=== PATIENT | male | born 1950 | race Caucasian/White ===

== ENCOUNTER 2017-07-05 05:20 | Emergency (ER) | payer MEDICARE ==
[2017-07-05] MEDS ORDERED: SODIUM CHLORIDE 0.9% 500 ML IV STA (05:50)
[2017-07-05 06:17] LABS: Basophils % (A) 1 %; CH 32.4; CHCM 33.3; Eosinophils # (A) 0.5 k/uL (0-0.7); Eosinophils % (A) 7 %; HDW 2.41; HGB 14.7 gm/dL (13.0-17.5); Luc # (Auto) 0.13; Luc % (Auto) 2; Lymphocytes # (A) 1.4 k/uL (1.0-4.8); Lymphocytes % (A) 19 %; MCH 31.9 pg (25.0-35.0); MCHC 32.7 g/dL (31.0-37.0); MCV 97.7 fL (80.0-100.0); Mean Platelet Volume 8.2; Monocytes # (A) 0.5 k/uL (0-1.0); Monocytes % (A) 7 %; Neutrophils # (A) 4.7 k/uL (1.3-7.7); Neutrophils % (A) 65 %; RDW 15.8 % (11.5-15.5); WBC 7.2 k/uL (3.8-10.6); WBC (Perox) 7.16
[2017-07-05 06:28] LABS: ALT 25 U/L (21-72); AST 26 U/L (17-59); Alkaline Phosphatase 88 U/L (38-126); Anion Gap 9 mmol/L; Blood Urea Nitrogen 15 mg/dL (9-20); Calcium 9.3 mg/dL (8.4-10.2); Carbon Dioxide 25 mmol/L (22-30); Chloride 103 mmol/L (98-107); Glucose 99 mg/dL (74-99); Non-African American GFR(MDRD) >60 (>60 ml/min/1.73 sqM); Potassium 4.2 mmol/L (3.5-5.1); Sodium 137 mmol/L (137-145); Total Bilirubin 0.6 mg/dL (0.2-1.3)
[2017-07-05 06:47] VITALS: TEMP 96.8
[2017-07-05 07:18] LABS: Appearance,Urine Clear (Clear); Bacteria,Urine Rare /hpf; Bilirubin,Urine Negative (Negative); Glucose,Urine (UA) Negative (Negative); Ketones,Urine Trace (Negative); Leukocyte Esterase,Urine Negative (Negative); Mucus,Urine Rare /hpf; Nitrite,Urine Negative (Negative); PH, Urine 6.5 (5.0-8.0); Particle Count 8067; Protein,Urine 1+ (Negative); RBC,Urine 21 /hpf (0-5); Specific Gravity,Urine 1.013 (1.001-1.035); UA Billing (MACRO vs. MICRO) MICRO; Urobilinogen,Urine <2.0 mg/dL (<2.0); WBC,Urine 3 /hpf (0-5)
--- NOTE | 2017-07-05 07:22 | CT ---
EXAM: CT Head Without Intravenous Contrast CLINICAL HISTORY: History of dementia. Status post fall. Seizure TECHNIQUE: Axial computed tomography images of the head/brain without intravenous contrast. Coronal and sagittal reformatted images provided. CTDI is 58. 00 expelled 1005.80 mGy and DLP is mGy-cm. This CT exam was performed using one or more of the following dose reduction techniques: automated exposure control, adjustment of the mA and/or kV according to patient size, and/or use of iterative reconstruction technique. COMPARISON: CT head, 12/06/2014 FINDINGS: Brain: Severe cerebral atrophy for age, especially the temporal lobes. Increased central cerebral volume loss since prior exam with progressive enlargement of the ventricles. Redemonstration of old right basal ganglia lacunar infarct. Progression of periventricular and subcortical white matter low attenuation, compatible with chronic small vessel ischemic disease. No hemorrhage. Ventricles: No hydrocephalus. Bones/joints: Unremarkable. No acute fracture. Soft tissues: Unremarkable. Sinuses: There is mucosal thickening within the ethmoid air cells, maxillary and sphenoid sinuses. The frontal sinuses are clear. Mastoid air cells: Unremarkable as visualized. No mastoid effusion. Orbits: Status post remote bilateral cataract surgery. IMPRESSION: 1. No evidence of acute intracranial hemorrhage, transcortical infarction or mass. 2. Severe cerebral atrophy for age, with temporal lobe predominance, and progressive central volume loss since prior exam with enlargement of the ventricles. 3. Redemonstration of old right basal ganglia lacunar infarct. 4. Progression of chronic small vessel ischemic disease. 5. Paranasal sinus inflammatory disease involving the ethmoid air cells and maxillary and sphenoid sinuses.
--- NOTE | 2017-07-05 07:25 | XR ---
EXAMINATION TYPE: XR chest 1V portable DATE OF EXAM: 07/05/2017 COMPARISON: 02/25/2015 and 12/06/2014. HISTORY: Fall. Chest pain TECHNIQUE: Single frontal view of the chest is obtained. FINDINGS: There is no focal air space opacity, pleural effusion, or pneumothorax seen. Trace right b asilar atelectasis is seen peripherally. Biapical lucency and tapering the pulmonary vasculature are noted indicating a degree of COPD. Hyperinflation and flattening of the diaphragms was better appreci ated on prior examinations. The cardiac silhouette size is within normal limits. The osseous struc tures are intact. IMPRESSION: Right basilar atelectasis with no focal consolidation to suggest underlying pneumonia.
--- NOTE | 2017-07-05 07:49 | ED ---
Fall HPI - General Chief Complaint: Fall Stated Complaint: fall,altered mental status Time Seen by Provider: 07/05/17 05:49 Source: EMS Mode of arrival: EMS Limitations: altered mental status (Severe dementia) - History of Present Illness Initial Comments: This patient is a 66-year-old man with history of previous head injury and also of severe dementia. The patient is actually a hospice patient, but family wanted him evaluated after they found him on the floor tonight and then he appeared to possibly have a brief period of seizure activity. He has not have history of seizures. The patient is not able to give any history due to severe dementia area the patient's does relate the history for him. They found the patient lying on the floor next the couch and they're uncertain if he had a fall. He then had a brief period in which he appeared to be shaking. MD Complaint: other Onset/Timin -: hour(s) - Related Data Home Medications Medication Instructions Recorded Confirmed Memantine [Namenda] 10 mg PO BID 02/25/15 07/05/17 Acetaminophen [Tylenol 8 Hour] 650 mg PO Q8HR PRN 07/05/17 07/05/17 Aspirin 81 mg PO DAILY 07/05/17 07/05/17 Divalproex Sprinkle [Depakote 250 mg PO BID 07/05/17 07/05/17 Sprinkle] Hyoscyamine Sulfate [Levsin] 0.125 mg PO Q4H 07/05/17 07/05/17 LORazepam [Ativan] 0.5 mg PO HS PRN 07/05/17 07/05/17 Lisinopril [Prinivil] 20 mg PO DAILY 07/05/17 07/05/17 Mirtazapine [Remeron] 15 mg PO HS 07/05/17 07/05/17 QUEtiapine [SEROquel] 12.5 mg PO BID 07/05/17 07/05/17 Allergies Allergy/AdvReac Type Severity Reaction Status Date / Time No Known Allergies Allergy Verified 07/05/17 07:53 Review of Systems ROS Statement: Those systems with pertinent positive or pertinent negative responses have been documented in the HPI. ROS Other: All systems not noted in ROS Statement are negative. Limitations: ROS unobtainable due to patients medical condition (Severe dementia ) Past Medical History Past Medical History: Coronary Artery Disease (CAD), COPD, Hyperlipidemia, Hypertension, Myocardial Infarction ([place]), Sleep Apnea/CPAP/BIPAP Additional Past Medical History / Comment(s): dementia PVD, ECCYMOSIS RT FOOT, DECREASED EF % UNK Last Myocardial Infarction Date:: 1982 History of Any Multi-Drug Resistant Organisms: None Reported Past Surgical History: Heart Catheterization, Tonsillectomy Additional Past Surgical History / Comment(s): STENT TO LEFT LEG, PTCA RCA/LAD Past Anesthesia/Blood Transfusion Reactions: No Reported Reaction Date of Last Stent Placement:: 2003 Past Psychological History: No Psychological Hx Reported, Anxiety Smoking Status: Former smoker Past Alcohol Use History: None Reported, Occasional Past Drug Use History: None Reported - Past Family History Father Family Medical History: Myocardial Infarction ([place]) Additional Family Medical History / Comment(s): AT AGE 55 Mother Additional Family Medical History / Comment(s): ANGIOPLASTY General Exam Limitations: no limitations General appearance: alert, anxious Head exam: Present: atraumatic, normocephalic Eye exam: Present: normal appearance, PERRL, EOMI. Absent: scleral icterus, conjunctival injection ENT exam: Present: mucous membranes dry Neck exam: Present: normal inspection, full ROM. Absent: meningismus Respiratory exam: Present: normal lung sounds bilaterally. Absent: respiratory distress, wheezes, rales, rhonchi, stridor Cardiovascular Exam: Present: regular rate, normal rhythm, normal heart sounds. Absent: systolic murmur, diastolic murmur GI/Abdominal exam: Present: soft. Absent: tenderness, guarding, rebound Extremities exam: Present: normal inspection, normal capillary refill. Absent: pedal edema, calf tenderness Back exam: Absent: CVA tenderness (R), CVA tenderness (L), vertebral tenderness Neurological exam: Present: alert. Absent: motor sensory deficit Skin exam: Present: warm, dry, intact, normal color. Absent: rash Course Vital Signs 07/05/17 07/05/17 07/05/17 05:22 06:46 08:00 Temperature 96.0 F L 96.8 F L 96.8 F L Pulse Rate 55 L 81 84 Respiratory 28 H 22 24 Rate Blood Pressure 148/102 148/64 138/88 O2 Sat by Pulse 94 L 95 97 Oximetry Medical Decision Making - Medical Decision Making 's patient is a 66-year-old man in to be evaluated after he may have had a seizure at home. The patient may also have had a fall prior to that. The workup here does not reveal any evident intracranial bleeding. The patient does appear to be at his baseline now per his area I discussed admission for observation and neurology consultation, but the patient's states that she would rather take him home. She is concerned about the milia affect worsening due to his dementia. They understand that there is a risk his condition may worsen but states that he is a hospice patient. They will follow- up with his neurologist. - Lab Data Result diagrams: 07/05/17 06:00 07/05/17 06:00 Lab Results 07/05/17 07/05/17 07/05/17 Range/Units 06:00 06:00 06:00 WBC 7.2 (3.8-10.6) k/uL RBC 4.60 (4.30-5.90) m/uL Hgb 14.7 (13.0-17.5) gm/dL Hct 45.0 (39.0-53.0) % MCV 97.7 (80.0-100.0) fL MCH 31.9 (25.0-35.0) pg MCHC 32.7 (31.0-37.0) g/dL RDW 15.8 H (11.5-15.5) % Plt Count 238 (150-450) k/uL Neutrophils % 65 % Lymphocytes % 19 % Monocytes % 7 % Eosinophils % 7 % Basophils % 1 % Neutrophils # 4.7 (1.3-7.7) k/uL Lymphocytes # 1.4 (1.0-4.8) k/uL Monocytes # 0.5 (0-1.0) k/uL Eosinophils # 0.5 (0-0.7) k/uL Basophils # 0.0 (0-0.2) k/uL Sodium 137 (137-145) mmol/L Potassium 4.2 (3.5-5.1) mmol/L Chloride 103 (98-107) mmol/L Carbon Dioxide 25 (22-30) mmol/L Anion Gap 9 mmol/L BUN 15 (9-20) mg/dL Creatinine 0.79 (0.66-1.25) mg/dL Est GFR (MDRD) Af Amer >60 (>60 ml/min/1.73 sqM) Est GFR (MDRD) Non-Af >60 (>60 ml/min/1.73 sqM) Glucose 99 (74-99) mg/dL Lactic Ac Sepsis Rflx Plasma Lactic Acid Kris 2.4 H* (0.7-2.0) mmol/L Calcium 9.3 (8.4-10.2) mg/dL Total Bilirubin 0.6 (0.2-1.3) mg/dL AST 26 (17-59) U/L ALT 25 (21-72) U/L Alkaline Phosphatase 88 (38-126) U/L Ammonia 14 (<30) umol/L Total Protein 7.0 (6.3-8.2) g/dL Albumin 3.7 (3.5-5.0) g/dL Urine Color Urine Appearance (Clear) Urine pH (5.0-8.0) Ur Specific [place] (1.001-1.035) Urine Protein (Negative) Urine Glucose (UA) (Negative) Urine Ketones (Negative) Urine Blood (Negative) Urine Nitrite (Negative) Urine Bilirubin (Negative) Urine Urobilinogen (<2.0) mg/dL Ur Leukocyte Esterase (Negative) Urine RBC (0-5) /hpf Urine WBC (0-5) /hpf Urine Bacteria (None) /hpf Hyaline Casts (0-2) /lpf Urine Mucus (None) /hpf 07/05/17 07/05/17 Range/Units 06:30 07:00 WBC (3.8-10.6) k/uL RBC (4.30-5.90) m/uL Hgb (13.0-17.5) gm/dL Hct (39.0-53.0) % MCV (80.0-100.0) fL MCH (25.0-35.0) pg MCHC (31.0-37.0) g/dL RDW (11.5-15.5) % Plt Count (150-450) k/uL Neutrophils % % Lymphocytes % % Monocytes % % Eosinophils % % Basophils % % Neutrophils # (1.3-7.7) k/uL Lymphocytes # (1.0-4.8) k/uL Monocytes # (0-1.0) k/uL Eosinophils # (0-0.7) k/uL Basophils # (0-0.2) k/uL Sodium (137-145) mmol/L Potassium (3.5-5.1) mmol/L Chloride (98-107) mmol/L Carbon Dioxide (22-30) mmol/L Anion Gap mmol/L BUN (9-20) mg/dL Creatinine (0.66-1.25) mg/dL Est GFR (MDRD) Af Amer (>60 ml/min/1.73 sqM) Est GFR (MDRD) Non-Af (>60 ml/min/1.73 sqM) Glucose (74-99) mg/dL Lactic Ac Sepsis Rflx Y Plasma Lactic Acid Kris (0.7-2.0) mmol/L Calcium (8.4-10.2) mg/dL Total Bilirubin (0.2-1.3) mg/dL AST (17-59) U/L ALT (21-72) U/L Alkaline Phosphatase (38-126) U/L Ammonia (<30) umol/L Total Protein (6.3-8.2) g/dL Albumin (3.5-5.0) g/dL Urine Color Yellow Urine Appearance Clear (Clear) Urine pH 6.5 (5.0-8.0) Ur Specific [place] 1.013 (1.001-1.035) Urine Protein 1+ H (Negative) Urine Glucose (UA) Negative (Negative) Urine Ketones Trace H (Negative) Urine Blood Moderate H (Negative) Urine Nitrite Negative (Negative) Urine Bilirubin Negative (Negative) Urine Urobilinogen <2.0 (<2.0) mg/dL Ur Leukocyte Esterase Negative (Negative) Urine RBC 21 H (0-5) /hpf Urine WBC 3 (0-5) /hpf Urine Bacteria Rare H (None) /hpf Hyaline Casts 3 H (0-2) /lpf Urine Mucus Rare H (None) /hpf Disposition Clinical Impression: Seizure Disposition: HOME SELF-CARE Condition: Poor Instructions: Fall Prevention for Older Adults (ED), New-Onset Seizure in Adults (ED) Referrals: Ayden Lopez MD [Primary Care Provider] - 1-2 days Prabhakar Swartz MD [STAFF PHYSICIAN] - 1-2 days
[2017-07-05 08:14] VITALS: BP 138/88; PULSE 84; RESP 24
== END 2017-07-05 08:15 | disposition home or self-care (01) ==
LOC: EC 05:20
DX: R56.9 Unspecified convulsions (principal); F03.90 Unspecified dementia, unspecified severity, without behavioral disturbance, psychotic disturbance, mood disturbance, and anxiety; I25.10 Atherosclerotic heart disease of native coronary artery without angina pectoris; I10 Essential (primary) hypertension; I25.2 Old myocardial infarction; Z87.891 Personal history of nicotine dependence; Z79.82 Long term (current) use of aspirin; Z79.899 Other long term (current) drug therapy
CPT/HCPCS: 36415; 70450; 71010; 80053; 81001; 82140; 83605; 85025; 99285